=== PATIENT | female | born 2000 | race Caucasian/White ===

== ENCOUNTER 2023-10-04 09:03 | Emergency (ER) | payer MEDICAID ==
[~2023-10-04] VITALS: Ht 167.6 cm; Wt 55.0 kg
[2023-10-04 09:19] VITALS: O2SAT 100
[2023-10-04] MEDS ORDERED: SULF1TAB48 MT (10:03)
[2023-10-04] MEDS ORDERED: IBUP-2029 MT (10:03)
[2023-10-04 10:10] LABS: BASOPHILS % 0.5 % (0.0-2.0); EOSINOPHILS % 2.3 % (0.0-5.0); HEMATOCRIT. 38.3 % (36.0-48.0); HEMOGLOBIN. 12.6 g/dL (12.0-16.0); LYMPHOCYTES % 39.2 % (20.0-50.0); MEAN CORPUSCULAR HEMOGLOBIN 28.8 pg (28.0-32.0); MEAN CORPUSCULAR HGB CONC 32.8 g/dL (31.0-37.0); MEAN CORPUSCULAR VOLUME 87.6 fL (81.0-99.0); MEAN PLATELET VOLUME 10.6 fl (7.4-10.4); MONOCYTES % 9.3 % (2.0-8.0); NEUTROPHILS % 48.7 % (40.0-76.0); PLATELET 178 x1000/uL (130-400); RED BLOOD CELL COUNT 4.38 mill/uL (4.2-5.4); RED CELL DISTRIBUTION WIDTH 15.1 % (11.6-14.6); WHITE BLOOD COUNT 4.1 x1000/uL (4.5-11.0)
[2023-10-04] MEDS: IBUPROFEN 600MG TABLET PO ONE (10:11)
[2023-10-04 10:16] LABS: CLARITY URINE CLEAR (CLEAR); COLOR URINE YELLOW (YELLOW); GLUCOSE URINE NEGATIVE (NEGATIVE); KETONES URINE NEGATIVE (NEGATIVE); LEUKOCYTE ESTERASE URINE 2+ (NEGATIVE); NITRITE URINE NEGATIVE (NEGATIVE); OCCULT BLOOD URINE NEGATIVE (NEGATIVE); PROTEIN URINE NEGATIVE (NEGATIVE); SPECIFIC GRAVITY URINE 1.012 (1.005-1.030); UROBILINOGEN URINE 0.2 E.U./dL (0.2-1.0)
[2023-10-04 10:20] VITALS: BP 118/76; PULSE 86; RESP 16; TEMP 98.1
[2023-10-04 10:22] LABS: CHLORIDE 107 mEq/L (98-107); POTASSIUM 3.8 mEq/L (3.5-5.1); SODIUM 138 mEq/L (136-145)
[2023-10-04 10:23] LABS: CALCIUM 9.3 mg/dL (8.7-10.4)
[2023-10-04 10:28] LABS: CREATININE 0.6 mg/dL (0.6-1.0); GLUCOSE 80 mg/dL (70-105); UREA NITROGEN BLOOD 5 mg/dL (9-23)
[2023-10-04 10:30] LABS: ALANINE AMINOTRANSFERASE 10 IU/L (10-49); ALBUMIN 4.6 g/dL (3.2-4.8); ASPARTATE AMINOTRANSFERASE 17 IU/L (<34); BILIRUBIN DIRECT 0.2 mg/dL (<=3.0); BILIRUBIN TOTAL 0.5 mg/dL (0.1-1.0); PROTEIN TOTAL 6.9 g/dL (6.0-8.3)
[2023-10-04 11:07] LABS: CARBON DIOXIDE 22 mEq/L (21-32)
[2023-10-04 11:17] LABS: SQUAMOUS EPITHELIAL CELL URINE 2+ /lpf (RARE/1+)
[2023-10-04 11:18] LABS: WBC URINE 50-100 /hpf (0-2)
[2023-10-04 11:19] LABS: RBC URINE 0-2 /hpf (0-2)
[2023-10-04 11:21] LABS: BACTERIA URINE 2+
== END 2023-10-04 10:54 | disposition home or self-care (01) ==
LOC: ER 09:03
DX: R10.9 Unspecified abdominal pain (principal)
CPT/HCPCS: 36415; 80048; 80076; 81003; 81025; 85025; 99283